=== PATIENT | female | born 1950 | race Caucasian/White ===

== ENCOUNTER 2016-09-26 10:17 | Observation (INO) ==
[2016-09-26 10:48] LABS: Bilirubin,Urine Negative (Negative); Blood,Urine Large (Negative); Clarity,Urine Turbid (Clear); Color,Urine Yellow (Yellow); Glucose,Urine (UA) Normal (Normal); Ketones,Urine Negative (Negative); Leukocyte Esterase,Urine Large (Negative); Nitrite,Urine Negative (Negative); Protein,Urine 100 mg/dL (Neg-Trace); Urobilinogen,Urine Normal (Normal)
[2016-09-26 11:07] LABS: RBC,Urine TNTC per hpf (0-3); WBC,Urine TNTC per hpf (0-3)
[2016-09-26 11:08] LABS: Bacteria,Urine Moderate per hpf (None-Few); Hyaline Casts,Urine None Seen per lpf (None-Few); Renal Epithelial Cells,Urine Few per hpf (None-Few); Squamous Epithelial Cell,Urine Few per lpf (None-Few)
--- NOTE | 2016-09-26 11:13 | Emergency Department Note ---
Disposition Clinical Impression: Urinary tract infection, Kidney stone, Hydronephrosis Disposition: Admitted As Inpatient Condition: Good Referrals: Clement Guzmán DO [Primary Care Provider] - Forms: ED Satisfaction Letter Time of Disposition: 12:46 General Adult HPI - General Chief complaint: ED Urogenital-Female Stated complaint: Urinary symptoms, hematuria Time Seen by Provider: 09/26/16 11:02 Source: patient Mode of arrival: ambulatory Limitations: no limitations Nursing Notes Reviewed: Yes Vital Signs Reviewed: Yes - History of Present Illness HPI Narrative: This is a 66-year-old female who presents with dysuria, hematuria, and R flank pain that wraps around to the suprapubic area. Patient states it started on Tuesday night and got worse this morning. Patient has had a history of kidney stones in the past that has felt similar. Patient denies any fevers. Patient' s not had any vomiting. Onset (ago): day(s) (2) Pain Scale: 6 - Related Data Home Medications Medication Instructions Recorded Confirmed Amlodipine Besylate/Benazepril 1 each PO DAILY 09/26/16 09/26/16 [Lotrel 10-20 mg Capsule] Aspirin [Lo-Dose Aspirin EC] 81 mg PO DAILY 09/26/16 09/26/16 Cetirizine HCl [Zyrtec] 10 mg PO DAILY 09/26/16 09/26/16 Cyanocobalamin (Vitamin B-12) 1,000 mcg PO DAILY 09/26/16 09/26/16 [Vitamin B12] Doxepin [Sinequan] 50 mg PO HS 09/26/16 09/26/16 Escitalopram [Lexapro] 5 mg PO DAILY 09/26/16 09/26/16 Esomeprazole Magnesium [Nexium 20 mg PO DAILY 09/26/16 09/26/16 24Hr] Levocetirizine Dihydrochloride 5 mg PO DAILY 09/26/16 09/26/16 [Xyzal] Ranitidine HCl [Zantac 75] 75 mg PO DAILY 09/26/16 09/26/16 Triamterene/HCTZ 37.5/25mg 1 each PO DAILY 09/26/16 09/26/16 [Dyazide] Allergies Allergy/AdvReac Type Severity Reaction Status Date / Time codeine Allergy Chest Pain Verified 09/26/16 10:23 Sulfa (Sulfonamide AdvReac Gastrointestinal Verified 09/26/16 10:23 Antibiotics) Upset All systems ED: reviewed and negative except as stated. Constitutional: Denies: fever, chills, weakness, weight change Eyes: Denies: eye pain, eye discharge, vision change ENT ED: Denies: ear pain, throat pain, dental pain, hearing loss, epistaxis, congestion, dysphagia Cardiovascular: Denies: chest pain, palpitations, dyspnea on exertion, edema, syncope Respiratory: Denies: cough, dyspnea, wheezes, hemoptysis, stridor Gastrointestinal: Reports: abdominal pain. Denies: nausea, vomiting, diarrhea, constipation, hematemesis, melena, hematochezia Genitourinary: Reports: dysuria, frequency, hematuria. Denies: discharge Musculoskeletal: Reports: back pain. Denies: neck pain, arthralgia, myalgia Integumentary: Denies: rash, abrasion, lesions Neurological: Denies: headache, weakness, numbness, paresthesias, confusion, abnormal gait, vertigo Psychiatric: Denies: anxiety, depression, suicidal thoughts, homicidal thoughts , auditory hallucinations, visual hallucinations Endocrine: Denies: fatigue Hematological/Lymphatic: Denies: easy bleeding, easy bruising Allergic/Immunologic: Denies: facial swelling, urticaria Past Medical History - Past Medical History Attestation: Yes The following information was validated with the patient. 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 - Social History Smoking Status: Never smoker Smokeless Tobacco Status: No Alcohol use: Reports: none Drug use: Reports: none Physical Exam - General Limitations: no limitations General appearance: alert, in no apparent distress - Head Head exam: atraumatic, normocephalic, normal inspection - Eye Eye exam: Present: normal appearance, PERRL, EOMI - ENT ENT exam: normal exam, normal oropharynx, mucous membranes moist - Expanded ENT Exam External ear exam: Present: normal external inspection Mouth exam: Present: normal external inspection Teeth exam: Present: normal inspection Throat exam: Present: normal inspection - Neck Neck exam: Present: normal inspection, full ROM, trachea midline - Chest Chest inspection: Present: normal inspection, symmetric chest wall rise - Respiratory Respiratory exam: Present: normal lung sounds bilaterally - Cardiovascular Cardiovascular exam: Present: regular rate, normal rhythm, normal heart sounds - Abdominal Exam Abdominal exam: Present: soft, tenderness. Absent: distention, guarding, rebound, rigidity Abdominal tenderness: Present: suprapubic, mild - Extremities Exam Extremities exam: Present: normal inspection, full ROM. Absent: tenderness, pedal edema - Expanded Upper Extremity Exam Shoulder exam: Present: normal inspection, full ROM Arm exam: Present: normal inspection, full ROM Elbow exam: Present: normal inspection, full ROM Forearm/Wrist exam: Present: normal inspection, full ROM Hand exam: Present: normal inspection, full ROM Vascular exam: Normal: capillary refill, radial pulse - Expanded Lower Extremity Exam Hip/Pelvis exam: Present: normal inspection, full ROM Upper leg exam: Present: normal inspection, full ROM Knee exam: Present: normal inspection, full ROM Lower leg exam: Present: normal inspection, full ROM Ankle exam: Present: normal inspection, full ROM Foot/toe exam: Present: normal inspection, full ROM Neurovascular/Tendon exam: Absent: motor deficit, sensory deficit, tendon deficit - Back Exam Back exam: Present: normal inspection, full ROM, CVA tenderness (R) - Neurological Exam Neurological exam: Present: alert, oriented X3 - Expanded Neurological Exam Patient oriented to: Present: person, place, time Speech: Present: fluid speech Coma Scale Eye Opening: Spontaneous Coma Scale Motor Response: Obeys Commands Coma Scale Verbal Response: Oriented Coma Scale Total: 15 - Psychiatric Psychiatric exam: Present: normal affect, normal mood - Skin Skin exam: Present: warm, dry, intact, normal color Course - Consultations Consultation #1: I spoke with Dr. Gama staples to admit to his service. Time: 12:46 Vital Signs Temperature 98.2 F 09/26/16 10:19 Pulse Rate 98 09/26/16 10:19 Respiratory Rate 18 09/26/16 10:19 Blood Pressure 150/67 09/26/16 10:19 O2 Sat by Pulse Oximetry 94 L 09/26/16 10:19 Temperature 98.2 F 09/26/16 10:19 Pulse Rate 77 09/26/16 12:15 Respiratory Rate 16 09/26/16 12:15 Blood Pressure 143/73 09/26/16 12:15 O2 Sat by Pulse Oximetry 94 L 09/26/16 12:15 Oxygen Delivery Oxygen Delivery Room Air Medical Decision Making - Medical Records Medical records reviewed: Yes I reviewed the patient's medical records. - Lab Data Lab results reviewed: Yes I reviewed the patient's lab results. Result diagrams: 09/26/16 11:41 09/26/16 11:41 Lab Results 09/26/16 09/26/16 09/26/16 Range/Units 10:42 11:41 11:41 WBC 13.4 H (4.3-11.1) K/mcL RBC 4.35 (3.82-4.97) M/mcL Hgb 12.2 (11.5-15.4) g/dL Hct 37.5 (35.3-44.9) % MCV 86.2 (83.0-100.0) fL MCH 28.0 (28.0-33.3) pg MCHC 32.5 (31.6-35.5) g/dL RDW 12.7 (11.5-14.5) % Plt Count 284 (140-400) K/mcL MPV 9.0 L (9.4-12.4) fL Immature Gran % 0.2 (0-4) % Seg Neutrophils % 82.5 % Lymphocytes % 9.5 % Monocytes % 5.8 % Eosinophils % 1.6 % Basophils % 0.4 % Neutrophils # 11.0 H (1.6-8.9) K/mcL Lymphocytes # 1.3 (0.6-4.6) K/mcL Monocytes # 0.8 (0.0-1.3) K/mcL Eosinophils # 0.2 (0.0-0.6) K/mcL Basophils # 0.1 (0.0-0.2) K/mcL Sodium 142 (136-145) mEq/L Potassium 3.0 L (3.5-4.5) mEq/L Chloride 103 (98-109) mEq/L Carbon Dioxide 25 (19-29) mEq/L BUN 15 (7-20) mg/dL Creatinine 1.06 (0.57-1.11) mg/dL Est GFR ( Amer) > 60 (> 60) Est GFR (Non-Af Amer) 52 L (> 60) BUN/Creatinine Ratio 14 (6-26) Glucose 90 (70-99) mg/dL Calculated Osmolality 294 (280-300) Calcium 9.4 (8.6-10.8) mg/dL Urine Color Yellow (Yellow) Urine Clarity Turbid A (Clear) Urine pH 7.0 (5.0-8.0) pH Units Ur Specific Elliott 1.020 (1.010-1.025) Urine Protein 100 H (Neg-Trace) mg/dL Urine Glucose (UA) Normal (Normal) mg/dL Urine Ketones Negative (Negative) mg/dL Urine Blood Large H (Negative) Urine Nitrite Negative (Negative) Urine Bilirubin Negative (Negative) Urine Urobilinogen Normal (Normal) mg/dL Ur Leukocyte Esterase Large H (Negative) Urine Microscopic RBC TNTC H (0-3) per hpf Urine Microscopic WBC TNTC H (0-3) per hpf Ur Squamous Epith Cells Few (None-Few) per lpf Ur Renal Epithelial Cell Few (None-Few) per hpf Urine Bacteria Moderate H (None-Few) per hpf Hyaline Casts None Seen (None-Few) per lpf Urine Sperm Test Not Performed Ur Culture Indicated? YES A (NO) - Radiology Data Radiology results reviewed: Yes I reviewed the patient's radiology results.
[2016-09-26 11:48] LABS: Basophils # 0.1 K/mcL (0.0-0.2); Basophils % 0.4 %; Eosinophils # 0.2 K/mcL (0.0-0.6); Eosinophils % 1.6 %; Hematocrit 37.5 % (35.3-44.9); Hemoglobin 12.2 g/dL (11.5-15.4); Immature Granulocytes % 0.2 % (0-4); Lymphocytes # 1.3 K/mcL (0.6-4.6); Lymphocytes % 9.5 %; Mean Corpuscular HGB Conc 32.5 g/dL (31.6-35.5); Mean Corpuscular Volume 86.2 fL (83.0-100.0); Monocytes # 0.8 K/mcL (0.0-1.3); Monocytes % 5.8 %; Platelet Count 284 K/mcL (140-400); Red Blood Count 4.35 M/mcL (3.82-4.97); Red Cell Distribution Width 12.7 % (11.5-14.5); Segmented Neutrophils % 82.5 %
[2016-09-26 12:00] LABS: BUN/Creatinine Ratio 14 (6-26); Blood Urea Nitrogen 15 mg/dL (7-20); Calcium 9.4 mg/dL (8.6-10.8); Carbon Dioxide 25 mEq/L (19-29); Chloride 103 mEq/L (98-109); Glucose 90 mg/dL (70-99); Osmolality,Calculated 294 (280-300); Sodium 142 mEq/L (136-145); eGFR For African Americans > 60 (> 60); eGFR For Non-African Americans 52 (> 60)
[2016-09-26] MEDS ORDERED: 0.9 % Sodium Chloride 1,000 ML IV SCH (12:45)
[2016-09-26] MEDS ORDERED: traMADol 50 MG TABLET PO PRN (15:11)
[2016-09-26] MEDS ORDERED: *HR* Morphine 2 MG/ML SYRINGE IVP PRN (15:16)
[2016-09-26] MEDS ORDERED: Ketorolac 30 MG/ML VIAL IVP PRN (15:17)
[2016-09-26] MEDS ORDERED: Ondansetron 4 MG/2 ML VIAL IVP PRN (15:18)
[2016-09-26] MEDS ORDERED: *HR* Promethazine 25 MG/ML VIAL IVP PRN (15:23)
[2016-09-26] MEDS: 0.9 % Sodium Chloride 1,000 ML IVC SCH (16:04)
[2016-09-27] MEDS: 0.9 % Sodium Chloride 1,000 ML IVC SCH ×4 (00:05→13:18)
--- NOTE | 2016-09-27 07:17 | Urology History & Physical ---
Date of Encounter: 09/27/16 Time of Encounter: 07:15 Assessment and Plan (1) Ureteral stone with hydronephrosis Current Visit: Yes Status: Acute We discussed trial of passage because the patient's vital signs have remained stable. She states she's been unable to pass stones in the past is actually planning on going out of town later in the week. She would like to proceed with an attempted ureteroscopic stone extraction during this hospitalization. I feel that proceeding with ureteroscopic stone extraction is safe as the stone is distal and will require very little manipulation of her urinary tract despite the potential infection. We discussed the risk of sepsis or prolonged hospitalization if she develops fever or other symptoms after the stone extraction. She understands that she will require a stent placement (2) Urinary tract infection Current Visit: Yes Status: Acute Continue antibiotics and IV fluids. Stone intervention planned Qualifiers: Urinary tract infection type: acute cystitis Hematuria presence: with hematuria Qualified Code(s): N30.01 - Acute cystitis with hematuria History of Present Illness Chief complaint: right flank pain HPI: Ms. Melendez is a 66 year old female admitted with 4 mm distal right ureteral stone and possible UTI. vitals stable. some dysuria. has not passed sotne. hx of stones and required 2 surgeries in the past. No fever home. Past Med Surg Social Fam HX - Past Medical History Medical history: hyperlipidemia, hypertension, kidney stones, renal disease Psychiatric history: depression - Social History Smoking Status: Never smoker Smokeless Tobacco Status: No Alcohol use: none Drug use: none - Family History Father Hx Family Reproductive Disorders: Yes (Kidney) Medications and Allergies Amlodipine Besylate/Benazepril [Lotrel 5-20 mg Capsule] 1 cap PO DAILY 09/26/16 [History] Aspirin [Lo-Dose Aspirin EC] 81 mg PO DAILY 09/26/16 [History] Cetirizine HCl [Zyrtec] 10 mg PO HS 09/26/16 [History] Cyanocobalamin (Vitamin B-12) [Vitamin B12] 1,000 mcg PO DAILY 09/26/16 [History ] Doxepin [Sinequan] 50 mg PO HS 09/26/16 [History] Escitalopram [Lexapro] 10 mg PO DAILY 09/26/16 [History] Esomeprazole Magnesium [Nexium 24Hr] 20 mg PO DAILY 09/26/16 [History] Levocetirizine Dihydrochloride [Xyzal] 5 mg PO DAILY 09/26/16 [History] Ranitidine HCl [Zantac 75] 75 mg PO HS 09/26/16 [History] Triamterene/HCTZ 37.5/25mg [Dyazide] 1 tab PO DAILY 09/26/16 [History] Allergies codeine Allergy (Verified 09/26/16 10:23) Chest Pain Sulfa (Sulfonamide Antibiotics) Adverse Reaction (Verified 09/26/16 10:23) Gastrointestinal Upset Review of Systems - Constitutional fatigue, no fever(s) - EENT Nose, mouth and throat: no dizziness - Cardiovascular no chest pain - Respiratory no cough - Gastrointestinal abdominal pain, nausea, no vomiting - Genitourinary Genitourinary: flank pain - Musculoskeletal back pain - Integumentary no lesions - Neurological no confusion - Psychiatric no anxiety - Hematologic/Lymphatic no easy bleeding - Allergic/Immunologic as per HPI, no throat swelling Exam Initial Vital Signs Temp Pulse Resp BP Pulse Ox 98.2 F 98 18 150/67 94 L 09/26/16 10:19 09/26/16 10:19 09/26/16 10:19 09/26/16 10:19 09/26/16 10:19 - General physical appearance Present: well developed, no distress - Eyes Present: PERRL - ENT Present: normal nares - Neck Present: no masses - Respiratory Present: normal respiratory effort - Cardiovascular Cardiovascular exam IM: RRR - Abdomen Abdomen: Present: soft - Integumentary Present: no rash - Neurologic Present: normal coordination. Absent: disoriented, confused - Musculoskeletal Present: other Urology Results - Labs 09/26/16 11:41 09/26/16 11:41 Abnormal lab results WBC 13.4 K/mcL (4.3-11.1) H 09/26/16 11:41 MPV 9.0 fL (9.4-12.4) L 09/26/16 11:41 Neutrophils # 11.0 K/mcL (1.6-8.9) H 09/26/16 11:41 Potassium 3.0 mEq/L (3.5-4.5) L 09/26/16 11:41 Est GFR (Non-Af Amer) 52 (> 60) L 09/26/16 11:41 Urine Clarity Turbid (Clear) A 09/26/16 10:42 Urine Protein 100 mg/dL (Neg-Trace) H 09/26/16 10:42 Urine Blood Large (Negative) H 09/26/16 10:42 Ur Leukocyte Esterase Large (Negative) H 09/26/16 10:42 Urine Microscopic RBC TNTC per hpf (0-3) H 09/26/16 10:42 Urine Microscopic WBC TNTC per hpf (0-3) H 09/26/16 10:42 Urine Bacteria Moderate per hpf (None-Few) H 09/26/16 10:42 Ur Culture Indicated? YES (NO) A 09/26/16 10:42 All other labs normal.
--- NOTE | 2016-09-27 09:51 | Anesthesia Evaluation PreOp ---
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) Other Medical History: Renal (stone, hydronephrosis), GERD (controlled) Anesthesia History: No Prior Anesthetic Complications, Past Anesthesia (use x 2) Alcohol Use: none Drug use: none Medications and Allergies Amlodipine Besylate/Benazepril [Lotrel 5-20 mg Capsule] 1 cap PO DAILY 09/26/16 [History] Aspirin [Lo-Dose Aspirin EC] 81 mg PO DAILY 09/26/16 [History] Cetirizine HCl [Zyrtec] 10 mg PO HS 09/26/16 [History] Cyanocobalamin (Vitamin B-12) [Vitamin B12] 1,000 mcg PO DAILY 09/26/16 [History ] Doxepin [Sinequan] 50 mg PO HS 09/26/16 [History] Escitalopram [Lexapro] 10 mg PO DAILY 09/26/16 [History] Esomeprazole Magnesium [Nexium 24Hr] 20 mg PO DAILY 09/26/16 [History] Levocetirizine Dihydrochloride [Xyzal] 5 mg PO DAILY 09/26/16 [History] Ranitidine HCl [Zantac 75] 75 mg PO HS 09/26/16 [History] Triamterene/HCTZ 37.5/25mg [Dyazide] 1 tab PO DAILY 09/26/16 [History] Allergies codeine Allergy (Verified 09/26/16 10:23) Chest Pain Sulfa (Sulfonamide Antibiotics) Adverse Reaction (Verified 09/26/16 10:23) Gastrointestinal Upset - Meds/Allergy Pre-op Review Medications Reviewed: Yes Allergies Reviewed: Yes Beta Blockers on Current Med List: No Anesthesia Results - Labs 09/26/16 11:41 09/26/16 11:41 Anesthesia Exam Vital Signs/O2 Sat/Glucose, Most Current Temp Pulse Resp BP Pulse Ox 09/27/16 06:57 98.1 F 80 16 143/75 91 L Height: 1.57 Weight: 77 NPO (# of Hours): >8 - HEENT Pupil (Motor): Pupils equal, EOMI Mallampati: II Teeth: Poor dentition Oral Opening: Greater than 3 (good underbite) - COMMERCIAL LOAN PROCESSOR 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
[2016-09-27] MEDS ORDERED: Ketorolac 30 MG/ML VIAL ONE (10:42)
[2016-09-27] MEDS ORDERED: *HR* Midazolam HCl 2 MG/2 ML VIAL ONE (10:42)
[2016-09-27] MEDS ORDERED: Ondansetron 4 MG/2 ML VIAL ONE (10:42)
[2016-09-27] MEDS ORDERED: Lidocaine -MPF 2% 2 ML VIAL ONE (10:42)
[2016-09-27] MEDS ORDERED: *HR* FentaNYL (PF) 100 MCG/2 ML VIAL ONE (10:42)
[2016-09-27] MEDS ORDERED: *HR* Propofol 200 MG/20 ML VIAL IVP ONE (10:42)
--- NOTE | 2016-09-27 10:43 | Urology Progress Note ---
Date of Encounter: 09/27/16 Time of Encounter: 10:42 - Assessment and Plan (1) Ureteral stone with hydronephrosis Current Visit: Yes Status: Acute Assessment and plan: to or today for stone extraction Progress Note Narrative: patient with distal right ureteral stone. Objective Initial Vital Signs Temp Pulse Resp BP Pulse Ox 98.2 F 98 18 150/67 94 L 09/26/16 10:19 09/26/16 10:19 09/26/16 10:19 09/26/16 10:19 09/26/16 10:19 - General physical appearance Present: well developed - Labs 09/26/16 11:41 09/26/16 11:41 Consult Discharge Plan - Plan Referrals: Clement Guzmán DO [Primary Care Provider] -
[2016-09-27] MEDS ORDERED: Dexamethasone 4 MG/ML VIAL ONE (11:19)
--- NOTE | 2016-09-27 11:26 | Operative Note ---
Date of procedure: 09/27/16 Pre-op diagnosis: right distal ureteral stone Post-op diagnosis: same Procedure: Right ureteroscopic laser lithotripsy of stone, right ureteroscopic basket retrieval of stone fragment, right 4.8 x 26 cm ureteral stent placement Anesthesia: TELLO Surgeon: Aryan Rodriguez Condition: stable Disposition: PACU Procedure in Detail: Patient was prepped and draped in normal sterile fashion. Timeout procedure performed. The semirigid ureteroscope was placed in the bladder and the right ureteral orifice was cannulated. The right distal ureteral stone was encountered. Using holmium laser fragment this. All stone fragments were removed using a nitinol tipless basket. I then surveyed the entire ureter and no further stones were seen. I then back fed the wire through the cystoscope and placed a 4.8 x 26 cm ureteral stent with good curl seen in the bladder. A string was left for easy removal in 2-3 days.
--- NOTE | 2016-09-27 11:29 | Discharge Summary ---
Date of Encounter: 09/27/16 Time of Encounter: 11:26 - Discharge Diagnosis (1) Ureteral stone with hydronephrosis Priority: Primary Status: Acute - Discharge Medications Prescriptions: Tamsulosin [Flomax] 0.4 mg PO DAILY #7 capsule Tramadol HCl [Ultram] 50 mg PO TID PRN #15 tab PRN Reason: Pain Home Medications: Amlodipine Besylate/Benazepril [Lotrel 5-20 mg Capsule] 1 cap PO DAILY 09/26/16 [History] Aspirin [Lo-Dose Aspirin EC] 81 mg PO DAILY 09/26/16 [History] Cetirizine HCl [Zyrtec] 10 mg PO HS 09/26/16 [History] Cyanocobalamin (Vitamin B-12) [Vitamin B12] 1,000 mcg PO DAILY 09/26/16 [History ] Doxepin [Sinequan] 50 mg PO HS 09/26/16 [History] Escitalopram [Lexapro] 10 mg PO DAILY 09/26/16 [History] Esomeprazole Magnesium [Nexium 24Hr] 20 mg PO DAILY 09/26/16 [History] Levocetirizine Dihydrochloride [Xyzal] 5 mg PO DAILY 09/26/16 [History] Ranitidine HCl [Zantac 75] 75 mg PO HS 09/26/16 [History] Triamterene/HCTZ 37.5/25mg [Dyazide] 1 tab PO DAILY 09/26/16 [History] Tamsulosin [Flomax] 0.4 mg PO DAILY #7 capsule 09/27/16 [Rx] Tramadol HCl [Ultram] 50 mg PO TID PRN #15 tab 09/27/16 [Rx] Allergies/Adverse Reactions: Allergies codeine Allergy (Verified 09/26/16 10:23) Chest Pain Sulfa (Sulfonamide Antibiotics) Adverse Reaction (Verified 09/26/16 10:23) Gastrointestinal Upset Procedures and tests throughout hospitalization: Right ureteroscopic stone extraction and stent placement on 09/27/2016 Date of admission: 09/26/16 13:37 Primary care physician: Clement Guzmán Discharging clinician: Aryan Rodriguez Anticipated date of discharge: 09/27/16 - Patient Status Disposition: Home, Self-Care Overall status at discharge: patient is progressing back to baseline - Discharge Instructions Follow Up With: Clement Guzmán DO [Primary Care Provider] - Clement Malloy MD [Partnered Physician] - (2-3 weeks) Additional Instructions: Patient to remove stent in 2-3 days - Diet and Activity Activity: increase activity as tolerated Diet: advance to your usual diet - Hospital Course Hospital course: Ms. Melendez is a 66 year old female who is brought in the hospital for observation for a distal right ureteral stone and UTI. Patient taken operating room and stone was removed with stent placed on 09/27/2016. Patient was then transferred back to floor recovered well was discharged home. Time spent discussing smoking cessation with patient: 3 to 10 minutes - Time Spent with Patient Total time spent providing and/or coordinating discharge services: Less than 30 minutes Exam Initial Vital Signs Temp Pulse Resp BP Pulse Ox 98.2 F 98 18 150/67 94 L 09/26/16 10:19 09/26/16 10:19 09/26/16 10:19 09/26/16 10:19 09/26/16 10:19 - General physical appearance Present: well developed - Neck Present: no masses - Respiratory Present: normal respiratory effort
[2016-09-27] MEDS ORDERED: Ondansetron 4 MG/2 ML VIAL IVP PRN ×2 (11:37→12:21)
[2016-09-27] MEDS ORDERED: *HR* HYDROmorphone (PF) 1 MG/ML SYRINGE IVP PRN (11:37)
--- NOTE | 2016-09-27 12:14 | Anesthesia Evaluation Post Op ---
Date of Encounter: 09/27/16 Time of Encounter: 12:14 - Vital Signs Vital Signs: Vital Signs/O2 Sat/Glucose, Most Current Temp Pulse Resp BP Pulse Ox 09/27/16 12:09 98.0 F 71 16 131/70 96 09/27/16 11:59 97.1 F L 75 16 141/67 97 09/27/16 11:49 79 16 142/69 92 L 09/27/16 11:39 92 12 137/67 94 L 09/27/16 11:29 97.4 F L 99 16 138/73 94 L - Lungs Lungs: Clear Ascult./Percussion - Airway Airway: Non-obstructed - Cardiovascular Regular Rate - Mental Status Mental Status: Alert & Oriented, Answers Appropriately - Pain Pain Scale: 0 - Nausea Vomiting Nausea Vomiting: Not Present - Hydration Hydration: Ice chips - Discharge PostOp Status: Transfer Patient to floor
[2016-09-27] MEDS ORDERED: *HR* Morphine 2 MG/ML SYRINGE IVP PRN (12:21)
[2016-09-27] MEDS ORDERED: *HR* Promethazine 25 MG/ML VIAL IVP PRN (12:21)
[2016-09-27] MEDS ORDERED: traMADol 50 MG TABLET PO PRN (12:21)
[2016-09-27] MEDS ORDERED: Ketorolac 30 MG/ML VIAL IVP PRN (12:21)
[2016-09-27 13:04] VITALS: BP 106/55
== END 2016-09-27 15:30 | disposition home or self-care (01) ==
LOC: 3BNU 10:17 → EMEROO 10:17 → 3BNU 13:42
PROVIDERS: ADMIT Urology; ATTEND Urology